=== PATIENT | female | born 1960 | race American Indian/Alaskan Native ===

== ENCOUNTER 2016-12-20 20:57 | Emergency (ER) | payer MEDICARE ==
[2016-12-20 21:37] LABS: Basophils % (Auto) 1.1 % (0.0-1.8); Eosinophils % (Auto) 4.1 % (0.0-4.3); Hematocrit 34.5 % (30.3-42.9); Hemoglobin 11.3 gm/dl (10.1-14.3); Mean Corpuscular HGB Conc 33 % (30-34); Mean Corpuscular Volume 79 fl (79-97); Platelet Count 166 K/mm3 (140-440); Red Blood Count 4.36 M/mm3 (3.65-5.03); Red Cell Distribution Width 15.4 % (13.2-15.2); White Blood Count 3.1 K/mm3 (4.5-11.0)
[2016-12-20 21:41] LABS: Mean Corpuscular Hemoglobin 26 pg (28-32)
[2016-12-20 21:54] LABS: Alanine Aminotransferase 16 units/L (7-56); Albumin 4.2 g/dL (3.9-5); Albumin/Globulin Ratio 1.4 %; Alkaline Phosphatase 110 units/L (35-129); Anion Gap 17 mmol/L; BUN/Creatinine Ratio 16.92; Bilirubin,Total < 0.20 mg/dL (0.1-1.2); Blood Urea Nitrogen 22 mg/dL (7-17); Calcium 9.2 mg/dL (8.4-10.2); Carbon Dioxide 30 mmol/L (22-30); Chloride 100.1 mmol/L (98-107); Glucose 89 mg/dL (65-100); Lipase 35 units/L (13-60); Potassium 3.5 mmol/L (3.6-5.0); Sodium 144 mmol/L (137-145); Total Protein 7.3 g/dL (6.3-8.2)
[2016-12-21] MEDS ORDERED: ZOFRAN IM ONE (03:50)
[2016-12-21] MEDS ORDERED: TORADOL IM ONE (03:51)
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
[2016-12-21 04:37] VITALS: BP 166/97
--- NOTE | 2016-12-21 04:56 | Cat Scan Report ---
FINAL REPORT PROCEDURE: CT ABDOMEN PELVIS WO CON TECHNIQUE: Computerized axial tomography of the abdomen and pelvis was performed without intravenous contrast. This study is performed without intravascular contrast material and its sensitivity for abdominal and pelvic pathology, including neoplasms, inflammation, abscess, free fluid, thrombosis, arterial dissection and infarction, is reduced compared with a contrast enhanced study. HISTORY: B/L FLANK PAIN COMPARISON: No prior studies are available for comparison. FINDINGS: Visualized lower thorax: No significant abnormality. Liver: Normal size and attenuation. Spleen: Normal size and attenuation. Gallbladder and biliary system: There has been a cholecystectomy.. Pancreas: Normal. Adrenals: Normal. Kidneys: There are no kidney stones or ureteral stones. There is no hydronephrosis.. GI tract: There is diverticulosis the of the sigmoid and left colon. There is no diverticulitis, colitis, obstruction or mass. The appendix is normal.. Lymph nodes and mesentery: Normal. Vasculature: Normal. Bladder: Normal. Reproductive organs: Uterus is enlarged containing fibroids. Ovaries are unremarkable.. Peritoneum: There is no ascites, free air, abscess or adenopathy.. Musculoskeletal structures: No significant abnormality. Other: None. IMPRESSION: There has been a cholecystectomy.. There are no kidney stones or ureteral stones. There is no hydronephrosis.. There is diverticulosis the of the sigmoid and left colon. There is no diverticulitis, colitis, obstruction or mass. The appendix is normal.. Uterus is enlarged containing fibroids. Ovaries are unremarkable.. There is no ascites, free air, abscess or adenopathy. .
[2016-12-21 05:26] LABS: Bacteria,Urine 1+ /HPF (Negative); Bilirubin,Urine NEG (Negative); Blood,Urine NEG (Negative); Ketones,Urine NEG (Negative); Leukocyte Esterase,Urine MOD (Negative); Mucus,Urine FEW /HPF; Nitrite,Urine NEG (Negative); Protein,Urine <15 mg/dL mg/dL (Negative); Urobilinogen,Urine < 2.0 mg/dL (<2.0)
== END 2016-12-21 07:00 | disposition home or self-care (01) ==
LOC: ED 20:57
DX: N39.0 Urinary tract infection, site not specified (principal); I10 Essential (primary) hypertension
CPT/HCPCS: 36415; 74176; 80053; 81001; 83690; 85025; 96372; 99284; J1885; J2405

== ENCOUNTER 2018-08-01 14:01 | Emergency (ER) | payer MEDICARE ==
--- NOTE | 2018-08-01 14:56 | Emergency Department Report ---
Blank Doc - Documentation Documentation: 58 y/o history of mental illness. Was committed to mental hospital and ran away from hospital. Now out of medications. Feels very depressed to the point she cannot function. Unable to eat or care forself. Wants assisted living. Wont answer question of suicidal question but reports auditory and visual hallucination.
[2018-08-01 15:32] LABS: Basophils # (Auto) 0.1 K/mm3 (0.0-0.1); Basophils % (Auto) 1.4 % (0.0-1.8); Eosinophils # (Auto) 0.2 K/mm3 (0.0-0.4); Eosinophils % (Auto) 3.8 % (0.0-4.3); Hematocrit 31.8 % (30.3-42.9); Hemoglobin 10.4 gm/dl (10.1-14.3); Lymphocytes # (Auto) 1.3 K/mm3 (1.2-5.4); Lymphocytes % (Auto) 32.6 % (13.4-35.0); Mean Corpuscular HGB Conc 33 % (30-34); Mean Corpuscular Volume 79 fl (79-97); Monocytes # (Auto) 0.3 K/mm3 (0.0-0.8); Monocytes % (Auto) 6.8 % (0.0-7.3); Platelet Count 182 K/mm3 (140-440); Red Blood Count 4.02 M/mm3 (3.65-5.03); Red Cell Distribution Width 15.6 % (13.2-15.2)
[2018-08-01 15:54] LABS: Albumin 4.1 g/dL (3.9-5)
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
[2018-08-01] MEDS ORDERED: K-DUR PO ONE (18:25)
[2018-08-01] MEDS ORDERED: BENADRYL PO ONE (21:05)
[2018-08-01] MEDS ORDERED: NORVASC ONE (21:05)
[2018-08-02] MEDS ORDERED: K-DUR PO ONE (03:07)
[2018-08-02] MEDS ORDERED: TYLENOL ONE (04:21)
[2018-08-02] MEDS ORDERED: NORVASC PO ONE ×3 (07:04→12:25)
[2018-08-02] MEDS ORDERED: TYLENOL PO ONE (07:04)
[2018-08-02] MEDS ORDERED: BENADRYL PO ONE (07:11)
[2018-08-02] MEDS ORDERED: NORVASC ONE (09:43)
[2018-08-02 11:38] LABS: Bacteria,Urine 1+ /HPF (Negative); Bilirubin,Urine NEG (Negative); Blood,Urine NEG (Negative); Color,Urine Straw (Yellow); Mucus,Urine FEW /HPF; Protein,Urine <15 mg/dL mg/dL (Negative); Urobilinogen,Urine < 2.0 mg/dL (<2.0)
[2018-08-02 11:50] LABS: Amphetamine Screen,Urine PRESUMPTIVE NEGATIVE; Benzodiazepines Screen,Urine PRESUMPTIVE NEGATIVE; Cannabinoid Screen,Urine PRESUMPTIVE NEGATIVE; Cocaine Screen,Urine PRESUMPTIVE NEGATIVE; Methadone Screen,Urine PRESUMPTIVE NEGATIVE; Opiate Screen,Urine PRESUMPTIVE NEGATIVE
[2018-08-02 12:36] VITALS: BP 188/94
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
[2018-08-02] MEDS ORDERED: ABILIFY PO SCH (14:00)
[2018-08-02] MEDS ORDERED: BENADRYL PO SCH (22:00)
== END 2018-08-02 17:38 ==
LOC: EEVIPCON 14:01 → ED 14:01
DX: F39 Unspecified mood [affective] disorder (principal); G47.00 Insomnia, unspecified; R45.851 Suicidal ideations; I10 Essential (primary) hypertension; F31.9 Bipolar disorder, unspecified; F20.9 Schizophrenia, unspecified; F32.9 Major depressive disorder, single episode, unspecified; F17.200 Nicotine dependence, unspecified, uncomplicated
CPT/HCPCS: 36415; 80053; 80307; 81001; 82962; 85025; 99284; G0480; 80320

== ENCOUNTER 2018-08-02 12:50 | Inpatient (IN) | payer MEDICARE ==
[2018-08-02] MEDS ORDERED: DESYREL PO PRN (14:42)
[2018-08-02] MEDS ORDERED: IBUPROFEN PO PRN (14:42)
[2018-08-02] MEDS ORDERED: ULTRAM PO PRN (14:42)
[2018-08-02] MEDS ORDERED: NON-FORMULARY (Ciprofloxacin Hcl [Ciprofloxacin Tab] 500 MG) PO SCH (14:45)
[2018-08-02] MEDS: REMERON SOLUTAB PO SCH (21:32)
[2018-08-02] MEDS ORDERED: NON-FORMULARY (Quetiapine Fumarate [Quetiapine Fumarate] 300 MG) PO SCH (22:00)
--- NOTE | 2018-08-03 08:44 | History and Physical Report ---
GP History & Physical - History of Present Illness Date of admission: 08/02/18 Date of Examination: 08/03/18 Reason for Admission: Danger to self, Impaired reality testing, Psychopathology interference Chief Complaint: I have not been able to sleep for more than 7 days History of Present Illness: The patient is a 58yo , disabled AAF with history of Bipolar disorder. She presents with c/o inability to sleep for 7 days, racing thoughts, auditory hallucinations and fleeting suicidal thoughts. Patient reports that she is on stable on her medications - Seroquel 200mg twice daily and monthly Abilify shot. Per patient, she missed her last injection because the Pharmacist who usually comes to her house to give her the injection did not come last month. She wants to resume the Abilify injection as she finds it beneficial. Legal Status: Voluntary Patient Problems: Current Active Problems Bipolar 1 disorder, mixed, severe (Acute) Reaction to Hospitalization: Accepting Substance History - Substance History Drug Use: none Tobacco Type: Cigarettes Alcohol Use: No Past psychiatric history - Past Medical History Past Medical History: hypertension - past Psychiatric treatment and history Psych: Bipolar psychiatric treatment history: She reports 5 previous inpatient admissions, one suicide attempt after her in 2006. She has established out-patient care. - Social History Social history: , other (She lives with a general machine operator, she has an CHAY but she is disabled. No legal history and no access to guns. ) Review of Systems All systems: negative Constitutional: fatigue Psychiatric: anxiety, insomnia, mood swings Results - Results Labs/Vitals: Last Vital Signs Temp 97.7 F 08/03/18 07:00 Pulse 96 H 08/03/18 07:00 Resp 18 08/03/18 07:00 BP 122/89 08/03/18 07:00 Pulse Ox 97 08/03/18 07:00 Physical Examination - Constitutional Vitals: Vital Signs Temp Pulse Resp BP Pulse Ox 97.7 F 96 H 18 122/89 97 08/03/18 07:00 08/03/18 07:00 08/03/18 07:00 08/03/18 07:00 08/03/18 07:00 Temperature -Last 24 Hours Temperature 97.7 F General appearance: Present: no acute distress, obese - EENT Eyes: Present: PERRL ENT: hearing intact - Neck Neck: Present: supple - Respiratory Respiratory effort: normal Mental Status Exam - Vital signs Last Vital Signs Temp 97.7 F 08/03/18 07:00 Pulse 96 H 08/03/18 07:00 Resp 18 08/03/18 07:00 BP 122/89 08/03/18 07:00 Pulse Ox 97 08/03/18 07:00 - Exam Orientation: time, person Affect: depressed, anxious Mood: congruent with affect Thought Process: Intact Perceptions: auditory, hallucinations Speech: normal rate and pattern Concentration: focused Motor activity: normal Level of consciousness: alert Memory: Intact Sleep Symptoms: Difficulty Falling Asleep Interaction: cooperative, pleasant Mini mental status exam(if necessary): 24-30 Assessment and Plan - Psychiatric problem (1) Bipolar 1 disorder, mixed, severe Current Visit: Yes Status: Acute plan to address problem: Patient will be admitted for inpatient psychiatric evaluation, medication adjustment and close monitoring The patient's behavior, mood, sleep and appetite will be closely monitored. Patient will be enrolled in individual and group therapeutic sessions and encouraged to attend. Patient will be provided with a safe and structured environment. Patient's physical health needs will be addressed by the Hospitalist. Social Assessment will be completed, and the Corporate Safety Coordinator will work with patient and family to ensure a suitable and safe disposition Medication adjustment will be made as clinically indicated. Will resume home meds, start Abilify 5mg qd and give her the Abilify shot when available. The patient agreed on the treatment plan, understood the risk, benefit, alternative treatment, potential consequence of no treatment, and gave informed consent. Physician Certification - Certification Statement Physician Certification Statement: This is an acknowledgement statement that GORGE HILARIO is a 58 year old F who requires inpatient psychiatric admission for treatment which could reasonably be expected to improve the patient's condition for Estimated period of time patient will need to remain in the hospital: [ ] Plan for post-hospital care: [ ]
[2018-08-03] MEDS: NORVASC PO SCH (09:05)
[2018-08-03] MEDS: ZESTRIL PO SCH (09:07)
--- NOTE | 2018-08-03 09:41 | History and Physical Report ---
<JESS RICHMOND - Last Filed: 08/03/18 11:07> History of Present Illness Date of examination: 08/03/18 Date of admission: 08/02/18 17:40 Chief complaint: Danger to self, impaired reality testing History of present illness: 58-year-old -[place] female with history of bipolar disorder and essential hypertension. Presented to the ED on 08/01 with complaints of insomnia for the past 7 days, recent suicidal thoughts, and auditory hallucinations. Patient states that she attempted to overdose pills approximately one week ago and is unsure of the medication she used. Patient states that she is usually stable on by mouth Seroquel and Abilify injection. However she was unable to receive most recent Abilify injection which cause her to experience episodes of on unstability. At the time of my examination she denies suicidal ideations, hallucinations, chest pain, shortness of breath, or cough. She admits to generalized chronic pain, which is relieved by tramadol. Past History Past Medical History: hypertension Social history: , other (She lives with a public health dentist, she has an CHAY but she is disabled. No legal history and no access to guns. ) Medications and Allergies Allergies Allergy/AdvReac Type Severity Reaction Status Date / Time chloroquine Allergy Rash Verified 01/10/14 05:09 Home Medications Medication Instructions Recorded Confirmed Last Taken Type Lisinopril [Zestril] 30 mg PO QDAY #30 tablet 10/26/13 08/05/18 Unknown Rx Quetiapine Fumarate [QUEtiapine 300 mg PO QDAY #30 tablet 10/26/13 08/05/18 Unknown Rx Fumarate] QUEtiapine [SEROquel] 200 mg PO BID #60 tablet 12/25/13 08/05/18 Unknown Rx amLODIPine [Norvasc] 5 mg PO DAILY #30 tab 12/25/13 08/05/18 Unknown Rx Ibuprofen [Motrin 800 MG tab] 800 mg PO Q8HR PRN #30 tablet 11/17/14 08/05/18 Unknown Rx Active Meds: Active Medications Amlodipine Besylate (Norvasc) 5 mg PO DAILY [facility] Last Admin: 08/03/18 09:05 Dose: 5 mg Documented by: Aripiprazole (Abilify) 5 mg PO QDAY [facility] Ibuprofen (Motrin) 800 mg PO Q8HR PRN PRN Reason: Pain Lisinopril (Zestril) 30 mg PO QDAY [facility] Last Admin: 08/03/18 09:07 Dose: 30 mg Documented by: Mirtazapine (Remeron Solutab) 15 mg PO QHS [facility] Last Admin: 08/02/18 21:32 Dose: 15 mg Documented by: Miscellaneous Medication (Ciprofloxacin Hcl [Ciprofloxacin Tab]) 500 mg PO Q12H [facility] Quetiapine Fumarate (Seroquel) 300 mg PO QHS [facility] Last Admin: 08/02/18 21:32 Dose: 300 mg Documented by: Quetiapine Fumarate (Seroquel) 200 mg PO BID@0800,1700 [facility] Last Admin: 08/03/18 09:05 Dose: 200 mg Documented by: Tramadol HCl (Ultram) 50 mg PO Q6HR PRN PRN Reason: Pain Last Admin: 08/02/18 21:33 Dose: 50 mg Documented by: Trazodone HCl (Desyrel) 50 mg PO QHS PRN PRN Reason: Insomnia Review of Systems Constitutional: chronic pain Cardiovascular: no chest pain, no rapid/irregular heart beat, no shortness of breath Respiratory: no cough, no cough with sputum Gastrointestinal: no nausea, no vomiting, no diarrhea Genitourinary Female: no dysuria Rectal: no incontinence Musculoskeletal: no muscle weakness Integumentary: no rash, no sores, no change in hair/nails Neurological: no weakness, no numbness, no tingling Psychiatric: change in sleep habits, sleep disturbances, insomnia, no suicidal ideation, no hallucinations Endocrine: no weight change Hematologic/Lymphatic: no easy bruising, no easy bleeding Allergic/Immunologic: no seasonal allergies Exam - Constitutional Vitals: Temp Pulse Resp BP Pulse Ox 97.7 F 66 18 114/68 97 08/03/18 07:00 08/03/18 09:07 08/03/18 07:00 08/03/18 09:07 08/03/18 07:00 General appearance: Present: no acute distress - EENT Eyes: Present: PERRL, EOM intact ENT: hearing intact - Neck Neck: Present: supple, normal ROM - Respiratory Respiratory effort: normal Respiratory: bilateral: diminished (bases) - Cardiovascular Rhythm: regular Heart Sounds: Present: S1 & S2 - Extremities Extremities: pulses intact, pulses symmetrical Peripheral Pulses: within normal limits - Abdominal General gastrointestinal: Present: soft, non-tender Female genitourinary: Present: deferred - Rectal Rectal Exam: deferred - Integumentary Integumentary: Present: clear, warm, dry - Musculoskeletal Musculoskeletal: strength equal bilaterally - Psychiatric Psychiatric: cooperative - Neurologic Neurologic: CNII-XII intact - Allied Health Allied health notes reviewed: nursing Assessment and Plan Assessment and plan: Assessment: 58-year-old female with history of bipolar disorder, and essential Hypertension. At the time of her examination patient is awake alert and oriented 3, sitting in dayroom NAD. Bipolar disorder Essential hypertension Hypokalemia Chronic pain Plan: Bipolar disorder being managed by primary team Continue lisinopril 30 mg daily, Norvasc 5 mg daily, and monitor blood pressure Check Potassium, magnesium, and phosphorus; replace orally prn Continue pain management Advance Directives: No Contraindication Mechanical VTE Prophylaxis: Treatment Not Indicated Plan of care discussed with patient/family: Yes <KOREY MEEKS - Last Filed: 08/06/18 16:53> History of Present Illness Date of admission: 08/02/18 17:40 Medications and Allergies Active Meds: Active Medications Amlodipine Besylate (Norvasc) 5 mg PO DAILY [facility] Last Admin: 08/06/18 09:15 Dose: 5 mg Documented by: Aripiprazole (Abilify) 5 mg PO QDAY [facility] Last Admin: 08/06/18 09:17 Dose: 5 mg Documented by: Ibuprofen (Motrin) 800 mg PO Q8HR PRN PRN Reason: Pain Last Admin: 08/05/18 16:21 Dose: 800 mg Documented by: Lisinopril (Zestril) 30 mg PO QDAY [facility] Last Admin: 08/06/18 09:16 Dose: 30 mg Documented by: Mirtazapine (Remeron Solutab) 15 mg PO QHS [facility] Last Admin: 08/05/18 21:48 Dose: 15 mg Documented by: Nicotine (Habitrol) 21 mg TD QDAY [facility] Last Admin: 08/06/18 09:21 Dose: 21 mg Documented by: Quetiapine Fumarate (Seroquel) 300 mg PO QHS [facility] Last Admin: 08/05/18 21:47 Dose: 300 mg Documented by: Quetiapine Fumarate (Seroquel) 200 mg PO BID@0800,1700 [facility] Last Admin: 08/06/18 09:15 Dose: 200 mg Documented by: Tramadol HCl (Ultram) 50 mg PO Q6HR PRN PRN Reason: Pain Last Admin: 08/02/18 21:33 Dose: 50 mg Documented by: Trazodone HCl (Desyrel) 50 mg PO QHS PRN PRN Reason: Insomnia Last Admin: 08/04/18 21:42 Dose: 50 mg Documented by: Exam - Constitutional Vitals: Temp Pulse Resp BP Pulse Ox 97.9 F 107 H 18 140/67 97 08/06/18 08:32 08/06/18 09:16 08/06/18 08:32 08/06/18 09:16 08/06/18 08:32 Results - Labs Labs: Laboratory Last Values POC Glucose 108 (70-105) H 08/06/18 07:54 Assessment and Plan Assessment and plan: I saw and evaluated the patient. I agree with the findings and the plan of care as documented in the Nurse Practitioner's~note, with the following corrections and additions. recheck labs, K was repleted in ER 2 days ago
[2018-08-03] MEDS ORDERED: LISINOPRIL 30 MG PO SCH (10:00)
[2018-08-03] MEDS: ABILIFY PO SCH (10:12)
[2018-08-03] MEDS: HABITROL TD SCH (17:42)
[2018-08-03] MEDS: REMERON SOLUTAB PO SCH (21:49)
--- NOTE | 2018-08-04 08:42 | Progress Note ---
Subjective Date of service: 08/04/18 Principal diagnosis: Bipolar 1 disorder, mixed, severe Subjective Comment: Patient reports some improvement in her mood. She slept better last night. She continues to have racing thoughts and auditory hallucinations. She was started on Abilify 5mg tablet yesterday as Abilify Maintena is not on Formulary here. Objective - Criteria for Continued Treatment Criteria for Continued Treatment: Improving Level of Functioning, Reducing Isolative Behaviors, Stablizing Level of Functioning, Improving Emotional/Socia - Mental Status Mental Status: Oriented x 3 - Objective Observation Participation Level: Full Assessment and Plan - Patient Problems (1) Bipolar 1 disorder, mixed, severe Current Visit: Yes Status: Acute Plan to address problem: Patient will be admitted for inpatient psychiatric evaluation, medication adjustment and close monitoring The patient's behavior, mood, sleep and appetite will be closely monitored. Patient will be enrolled in individual and group therapeutic sessions and encouraged to attend. Patient will be provided with a safe and structured environment. Patient's physical health needs will be addressed by the Hospitalist. Social Assessment will be completed, and the Global Mobility Specialist will work with patient and family to ensure a suitable and safe disposition Medication adjustment will be made as clinically indicated. Continue Abilify 5mg qd and give her the Abilify shot when available. The patient agreed on the treatment plan, understood the risk, benefit, alternative treatment, potential consequence of no treatment, and gave informed consent.
[2018-08-04] MEDS: ABILIFY PO SCH (09:00)
[2018-08-04] MEDS: ZESTRIL PO SCH (09:01)
[2018-08-04] MEDS: NORVASC PO SCH (09:04)
[2018-08-04] MEDS: HABITROL TD SCH (09:06)
[2018-08-04] MEDS: REMERON SOLUTAB PO SCH (21:42)
[2018-08-05] MEDS: ABILIFY PO SCH (09:41)
[2018-08-05] MEDS: ZESTRIL PO SCH (09:41)
[2018-08-05] MEDS: HABITROL TD SCH (09:42)
[2018-08-05] MEDS: NORVASC PO SCH (09:43)
--- NOTE | 2018-08-05 15:08 | Progress Note ---
Subjective Date of service: 08/05/18 Principal diagnosis: Bipolar 1 disorder, mixed, severe Subjective Comment: Patient reports that she is improving. The racing thoughts are not as bad. She slept better last night. She was started on Abilify 5mg tablet 2 days ago as Abilify Maintena is not on Formulary here. Objective - Criteria for Continued Treatment Criteria for Continued Treatment: Improving Level of Functioning, Reducing Isolative Behaviors, Stablizing Level of Functioning, Improving Emotional/Socia - Mental Status Mental Status: Oriented x 3 - Objective Observation Participation Level: Moderate Assessment and Plan - Patient Problems (1) Bipolar 1 disorder, mixed, severe Current Visit: Yes Status: Acute Plan to address problem: Patient will be admitted for inpatient psychiatric evaluation, medication adjustment and close monitoring The patient's behavior, mood, sleep and appetite will be closely monitored. Patient will be enrolled in individual and group therapeutic sessions and encouraged to attend. Patient will be provided with a safe and structured environment. Patient's physical health needs will be addressed by the Hospitalist. Social Assessment will be completed, and the Furniture Upholsterer will work with patient and family to ensure a suitable and safe disposition Medication adjustment will be made as clinically indicated. Continue Abilify 5mg qd and give her the Abilify shot when available. The patient agreed on the treatment plan, understood the risk, benefit, alternative treatment, potential consequence of no treatment, and gave informed consent.
[2018-08-05] MEDS: REMERON SOLUTAB PO SCH (21:48)
[2018-08-06] MEDS: NORVASC PO SCH (09:15)
[2018-08-06] MEDS: ZESTRIL PO SCH (09:16)
[2018-08-06] MEDS: ABILIFY PO SCH (09:17)
[2018-08-06] MEDS: HABITROL TD SCH (09:21)
--- NOTE | 2018-08-06 17:31 | Progress Note ---
Subjective Date of service: 08/06/18 Principal diagnosis: Bipolar 1 disorder, mixed, severe Subjective Comment: The patient is a 58-year-old female with bipolar disorder who was admitted for an acute mixed episode. She currently states that she is sleeping better and slept through the night last night she continues to feel sad but states that it is a chronic issue that's not getting better worse. She denies suicidal ideation today and also denies homicidal ideation. She denies auditory and visual hallucinations she denies side effects from her medication though does note that she has some kidney problems. 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 It is unclear if she has any delusional content. Last Vital Signs Temp 97.9 F 08/06/18 08:32 Pulse 107 H 08/06/18 09:16 Resp 18 08/06/18 08:32 BP 140/67 08/06/18 09:16 Pulse Ox 97 08/06/18 08:32 Objective - Criteria for Continued Treatment Criteria for Continued Treatment: Preventing Decomposition, Stablizing Level of Functioning - Mental Status Mental Status: Oriented x 3 - Objective Observation Participation Level: Full Assessment and Plan - Patient Problems (1) Bipolar 1 disorder, mixed, severe Current Visit: Yes Status: Acute Plan to address problem: The patient has shown significant improvement in symptoms since admission. She does not have any further authorize days by insurance and will be discharged to home with follow-up with her regular psychiatrist next week she will be di scharged on her current Abilify 5 mg by mouth daily and current doses of Seroquel and Remeron. Recommend follow up [facility] for missed dose of Abilify maintena.
[2018-08-06] MEDS: REMERON SOLUTAB PO SCH (21:02)
[2018-08-06] MEDS: COLACE PO SCH (21:03)
[2018-08-07] MEDS: COLACE PO SCH ×2 (10:40→22:40)
[2018-08-07] MEDS: ZESTRIL PO SCH (10:40)
[2018-08-07] MEDS: ABILIFY PO SCH (10:45)
[2018-08-07] MEDS: NORVASC PO SCH (10:46)
[2018-08-07] MEDS: HABITROL TD SCH (10:50)
--- NOTE | 2018-08-07 16:43 | Progress Note ---
Subjective Date of service: 08/07/18 Principal diagnosis: Bipolar 1 disorder, mixed, severe Subjective Comment: The patient is a 58-year-old female with bipolar disorder who was admitted for an acute mixed episode. She currently states that she slept "ok." She endorses depressed mood today and does not know why. She denies suicidal and homicidal ideation. She denies auditory and visual hallucinations. She denies side effects from her medication. She reports headaches, but states they are better since coming to the hospital and sleeping more. Last Vital Signs Temp 97.9 F 08/06/18 08:32 Pulse 107 H 08/06/18 09:16 Resp 18 08/06/18 08:32 BP 140/67 08/06/18 09:16 Pulse Ox 97 Last Vital Signs Temp 98.4 F 08/07/18 09:00 Pulse 107 H 08/07/18 10:46 Resp 18 08/07/18 09:00 BP 140/67 08/07/18 10:46 Pulse Ox 97 08/06/18 08:32 Objective - Criteria for Continued Treatment Criteria for Continued Treatment: Reducing Isolative Behaviors, Improving Treatment / Medication Compliance, Stablizing Level of Functioning - Mental Status Mental Status: Oriented x 3 - Objective Observation Participation Level: Moderate (Did not participate in a group today due to depressed mood.) Assessment and Plan - Patient Problems (1) Bipolar 1 disorder, mixed, severe Current Visit: Yes Status: Acute Plan to address problem: Continue Abilify 5mg po Qam. Change AM Seroquel to evening, as the patient is too sedated during the daytime. Continue hospitalization for continued side effect management. The patient will not be discharged today and will await assistance from home health care social worker with housing and scheduling psychiatric outpatient follow-up.
[2018-08-07] MEDS: REMERON SOLUTAB PO SCH (22:36)
[2018-08-08] MEDS: ABILIFY PO SCH (10:19)
[2018-08-08] MEDS: ZESTRIL PO SCH (10:19)
[2018-08-08] MEDS: COLACE PO SCH ×2 (10:19→22:22)
[2018-08-08] MEDS: HABITROL TD SCH (10:21)
[2018-08-08] MEDS: NORVASC PO SCH (10:21)
--- NOTE | 2018-08-08 13:28 | Progress Note ---
Subjective Date of service: 08/08/18 Principal diagnosis: Bipolar 1 disorder, mixed, severe Subjective Comment: Patient continues to have severe daytime sedation, despite d/c'ing AM dose of Seroquel. She states she feels tired and weak. She also endorses a headache and would like medication for pain. She has a depressed mood, but no SI/HI. She denies AVH. Objective - Criteria for Continued Treatment Criteria for Continued Treatment: Improving Level of Functioning, Reducing Isolative Behaviors, Stablizing Level of Functioning, Improving Emotional/Socia - Symptoms/Impairments Symptoms/Impairments: Grooming: fair. Behavior: cooperative. Motor: psychomotor retardation. Speech: normal. Mood: depressed. Affect: depressed. Thought content: no AVH, no SI/HI. Thought process: goal-directed. Reasoning: fair. Impulse control: good. Insight: good. Judgment: good - Mental Status Mental Status: Oriented x 3 - Objective Observation Participation Level: Moderate Reason(s) For Not Participating: Sleeping Assessment and Plan - Patient Problems (1) Bipolar 1 disorder, mixed, severe Current Visit: Yes Status: Acute Plan to address problem: Continue Abilify 5mg po Qam. Will change Seroquel to 500mg po Qhs only. Continue hospitalization for continued side effect management. The patient will not be discharged today and will await assistance from social welfare administrator with housing and scheduling psychiatric outpatient follow-up prior to discharge.
[2018-08-08] MEDS ORDERED: TYLENOL PO PRN (13:30)
[2018-08-08] MEDS: REMERON SOLUTAB PO SCH (22:23)
[2018-08-09] MEDS ORDERED: ZESTRIL ONE (10:17)
[2018-08-09] MEDS: ABILIFY PO SCH (11:24)
[2018-08-09] MEDS: COLACE PO SCH (11:28)
[2018-08-09] MEDS: NORVASC PO SCH (11:31)
[2018-08-09] MEDS: ZESTRIL PO SCH (11:33)
--- NOTE | 2018-08-09 12:06 | Discharge Summary ---
Providers - Providers Date of Admission: 08/02/18 17:40 Date of discharge: 08/09/18 Attending physician: AMRTI ALAN MD Seen by hospitalist upon admission for HTN and chronic pain. Patient was continued on home meds. Patient also noted kidney problems and had serum cre atinine of 1.7 upon admission. NSAIDS were removed from PRN meds. [facility] Reason for admission: manic episode, severe with psychotic features and suicidal ideation Admitting Diagnosis: F31.64 - BIPOLAR DISORD, CRNT EPISODE MIXED, SEVERE, W PSYCH FEATURES Condition: Good Pertinent studies: Laboratory Tests 08/04/18 08/05/18 08/06/18 08:01 07:44 07:54 POC Glucose 93 119 H 108 H 08/07/18 08/08/18 09:08 09:57 POC Glucose 98 107 H Height Height 5 ft 8 in Weight Weight 117.93 kg Weight 117.934 kg Procedures: None Hospital course: Ms. Villegas is a 58 year-old female with Bipolar disorder admitted for an acute mixed episode with psychotic features, delusions, and suicidal ideation. Upon admission the patient was started on Abilify 5 mg by mouth daily and Seroquel 200 mg in the morning 200 mg in the afternoon and 300 mg at be dtime. She was also continued on Remeron 15 mg by mouth daily at bedtime. By day 2 of hospitalization, the patient was having some improvement in sleep and decreased racing thoughts. On day 4 of hospitalization, the patient was experiencing daytime sedation from AM dose of Seroquel and all dosing was changed to afternoon/evening. On day 5 of hospitalization, the patient continued to have hypersedation during the daytime and Seroquel was lowered to 600mg QHS. On day 5 of hospitalization, the patient no longer had evidence of dia, but expressed mild depression. She also denied SI/HI and AVH for the last 3 days of hospitalization. On the day of discharge, the patient expressed concern about leaving the hospital because she feels that she does not have "good coping skills." She was evasive in answering questions - she expressed that her immigration status is of concern, but would not elaborate. However, given that she no longer has SI/HI, AVH, delusions, or evidence of dia, criteria for hospitalization is no longer met. emphasized the importance of taking medications daily, following up with psychiatry to restart Stacie Overton, and attending groups/therapy to improve coping skills. Disposition: DC-01 TO HOME OR SELFCARE Allergies/Adverse Reactions: Allergies chloroquine Allergy (Verified 01/10/14 05:09) Rash Vital Signs: Last Vital Signs Temp 98.4 F 08/09/18 06:26 Pulse 109 H 08/09/18 06:26 Resp 18 08/09/18 06:26 BP 128/71 08/09/18 06:26 Pulse Ox 93 08/09/18 06:26 Last Lab: Laboratory Last Values POC Glucose 107 (70-105) H 08/08/18 09:57 - Discharge Diagnoses (1) Bipolar 1 disorder, mixed, severe Status: Resolved (2) Suicidal ideation Status: Resolved Core Measure Documentation - Palliative Care Palliative Care/ Comfort Measures: Not Applicable - Core Measures Any of the following diagnoses?: none Exam - Physical Exam Narrative exam: Mental Status Exam completed 08/09/18: Grooming: fair Behavior: Cooperative Speech: Normal Motor: mild psychomotor retardation Mood: "Ok, a little down" Affect: blunted Thought content: denies SI/HI, AVH Thought process: goal-directed Reasoning: good Impulse control: good Insight: fair Judgment: good - Constitutional Vitals: Temp Pulse Resp BP Pulse Ox 98.4 F 109 H 18 128/71 93 08/09/18 06:26 08/09/18 06:26 08/09/18 06:26 08/09/18 06:26 08/09/18 06:26 General appearance: Present: no acute distress - EENT Eyes: Present: EOM intact ENT: hearing intact - Respiratory Respiratory effort: normal - Psychiatric Psychiatric: appropriate mood/affect, intact judgment & insight, cooperative, other - Neurologic Neurologic: gait normal - Allied Health Allied health notes reviewed: nursing, social work Plan Activity: no restrictions Weight Bearing Status: Full Weight Bearing Diet: low fat, low cholesterol, renal Follow up with: SANDHYA HILL MD [Primary Care Provider] - 7 Days [facility] [Outside] - 7 Days Prescriptions: Mirtazapine Solutab [Remeron Solutab] 15 mg PO QHS #30 tab.rapdis QUEtiapine [SEROquel] 300 mg PO QHS 30 Days tablet ARIPiprazole [Abilify TAB] 5 mg PO QDAY #30 tablet Docusate Sodium [Colace CAP] 100 mg PO BID #60 capsule QUEtiapine [SEROquel] 200 mg PO BID@0800,1700 #30 tablet
[2018-08-09] MEDS: HABITROL TD SCH (12:46)
[2018-08-10 17:51] VITALS: BP 128/71
== END 2018-08-09 16:44 | disposition home or self-care (01) | DRG 885 ==
LOC: 3A 12:50 → UNDOADMIN 12:50 → 5A 15:10 → UNDOADMIN 15:10 → 5A 17:40
PROVIDERS: ADMIT Psychiatry & Neurology Psychiatry; ATTEND Psychiatry & Neurology Psychiatry
DX: F31.64 Bipolar disorder, current episode mixed, severe, with psychotic features (principal); R45.851 Suicidal ideations; I10 Essential (primary) hypertension; G89.29 Other chronic pain; E87.6 Hypokalemia; F17.210 Nicotine dependence, cigarettes, uncomplicated; F41.9 Anxiety disorder, unspecified; Z79.899 Other long term (current) drug therapy
CPT/HCPCS: 36415; 80053; 80307; 80320; 81001; 82962; 85025; G0378; G0480

== ENCOUNTER 2021-04-15 14:39 | Observation (INO) | payer MEDICARE, OTHER ==
[2021-04-15] MEDS ORDERED: cloNIDine 0.2 MG TAB PO ONE ×2 (17:51→20:00)
--- NOTE | 2021-04-15 17:51 | Event Note ---
ED Screening Note ED Screening Note: Patient has a past medical history of uncontrolled hypertension and CKD not on dialysis She presents for uncontrolled blood pressures She states that she is also been having some shortness of breath with exertion and leg swelling She reports that she sees a jewel hole gauger in [facility] She denies any chest pain This initial assessment/diagnostic orders/clinical plan/treatment(s) is/are subject to change based on patients health status, clinical progression and re- assessment by fellow clinical providers in the ED. Further treatment and workup at subsequent clinical providers discretion. Patient/guardian urged not to elope from the ED as their condition may be serious if not clinically assessed and managed. Initial orders include: Labs, urine, EKG, x-ray, clonidine
--- NOTE | 2021-04-15 18:20 | XRay Report ---
XR chest routine 2V INDICATION / CLINICAL INFORMATION: SOB COMPARISON: None available. FINDINGS: SUPPORT DEVICES: None. HEART / MEDIASTINUM: No significant abnormality. LUNGS / PLEURA: Lungs are clear. Costophrenic sulci are sharp. No pneumothorax. ADDITIONAL FINDINGS: No significant additional findings. IMPRESSION: 1. No acute findings. Signer Name: Lake Greco MD Signed: 04/15/2021 6:16 PM Workstation Name: [id number]
[2021-04-15] MEDS ORDERED: METOPROLOL TARTRATE 50 MG TAB PO ONE (18:28)
[2021-04-15] MEDS ORDERED: hydrALAZINE 25 MG TAB PO ONE (18:28)
[2021-04-15] MEDS ORDERED: ACETAMINOPHEN 500 MG TAB PO ONE (18:29)
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
[2021-04-15 20:03] LABS: Basophils % (Auto) 0.5 % (0.0-1.8); Eosinophils # (Auto) 0.3 K/mm3 (0.0-0.4); Eosinophils % (Auto) 7.5 % (0.0-4.3); Hematocrit 23.8 % (30.3-42.9); Hemoglobin 7.4 gm/dl (10.1-14.3); Lymphocytes # (Auto) 0.9 K/mm3 (1.2-5.4); Lymphocytes % (Auto) 25.2 % (13.4-35.0); Mean Corpuscular HGB Conc 31 % (30-34); Mean Corpuscular Volume 81 fl (79-97); Monocytes # (Auto) 0.4 K/mm3 (0.0-0.8); Monocytes % (Auto) 9.5 % (0.0-7.3); Platelet Count 196 K/mm3 (140-440); Red Blood Count 2.93 M/mm3 (3.65-5.03); Red Cell Distribution Width 16.2 % (13.2-15.2)
[2021-04-15 20:24] LABS: Alanine Aminotransferase 12 units/L (7-56); Albumin 3.8 g/dL (3.9-5); BUN/Creatinine Ratio 12; Blood Urea Nitrogen 32 mg/dL (7-17); Calcium 9.1 mg/dL (8.4-10.2); Hemolysis Index 3
[2021-04-15] MEDS ORDERED: ASPIRIN 81 MG TAB CHEW PO ONE (20:30)
[2021-04-15 20:51] LABS: Chol/HDL Ratio 3.69 %; HDL Cholesterol 63 mg/dL (40-59); LDL Cholesterol,Direct 150 mg/dL (50-130)
[2021-04-16] MEDS ORDERED: ACETAMINOPHEN 325 MG TAB PO PRN ×2 (00:44)
[2021-04-16] MEDS ORDERED: MORPHINE 2 MG/1 ML INJ IV PRN (00:44)
[2021-04-16] MEDS ORDERED: NITROGLYCERIN 0.4 MG TAB SUBL SL PRN (00:44)
[2021-04-16] MEDS ORDERED: MORPHINE 4 MG/1 ML INJ IV PRN ×2 (00:44)
[2021-04-16] MEDS ORDERED: ONDANSETRON 4 MG/2 ML INJ IV PRN (00:44)
[2021-04-16] MEDS ORDERED: traMADol 50 MG TAB PO PRN (00:44)
[2021-04-16] MEDS ORDERED: MAGNESIUM HYDROXIDE (MOM) ORAL LIQD UDC PO PRN (00:44)
[2021-04-16] MEDS ORDERED: hydrALAZINE 20 MG/1 ML INJ IV PRN (00:57)
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
[2021-04-16] MEDS ORDERED: HEPARIN 5,000 UNIT/1 ML VIAL SUB-Q SCH (06:00)
[2021-04-16 10:25] LABS: Bilirubin,Urine NEG (Negative); Blood,Urine NEG (Negative); Color,Urine Straw (Yellow); Urobilinogen,Urine < 2.0 mg/dL (<2.0)
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
[2021-04-16] MEDS ORDERED: NON-FORMULARY EACH (Gabapentin [Neurontin] 600 MG Tablet) PO SCH (13:15)
--- NOTE | 2021-04-16 13:40 | Event Note ---
Date: 04/16/21 61-year-old -Martiniquais female with known history of hypertension and bipolar disorder presented in the emergency room with complaining of shortness of breath and progressive swelling of her lower extremities. Upon arrival in the emergency room her blood pressure was initially elevated with systolic in the 200s and diastolic in the low 100s. Subsequent blood pressure recheck was within normal limits. Work-up in the emergency room today however, chest x-ray reveals no acute findings. Labs were significant for hemoglobin of 7.4, BUN of 32 and creatinine of 2.6. Troponin was elevated at 0.132. Lipid profile is also abnormally elevated. Patient was admitted to telemetry with elevated troponin, acute on chronic renal failure and anemia. Nephrology consulted, continue to monitor renal function Cardiology recommended stress test which will be scheduled for tomorrow will also check cardiac echocardiogram cont to follow clinically
[2021-04-16 13:54] LABS: Calcium 8.8 mg/dL (8.4-10.2)
[2021-04-16 14:06] LABS: Basophils % (Auto) 0.8 % (0.0-1.8); Eosinophils # (Auto) 0.3 K/mm3 (0.0-0.4); Eosinophils % (Auto) 7.9 % (0.0-4.3); Hematocrit 23.4 % (30.3-42.9); Hemoglobin 7.2 gm/dl (10.1-14.3); Lymphocytes # (Auto) 0.9 K/mm3 (1.2-5.4); Lymphocytes % (Auto) 26.9 % (13.4-35.0); Mean Corpuscular HGB Conc 31 % (30-34); Mean Corpuscular Volume 80 fl (79-97); Monocytes # (Auto) 0.3 K/mm3 (0.0-0.8); Monocytes % (Auto) 8.4 % (0.0-7.3); Platelet Count 195 K/mm3 (140-440); Red Blood Count 2.92 M/mm3 (3.65-5.03); Red Cell Distribution Width 16.2 % (13.2-15.2)
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
[2021-04-16] MEDS: GABAPENTIN 300 MG CAP PO SCH ×2 (15:47→22:57)
[2021-04-16] MEDS: hydrALAZINE 25 MG TAB PO SCH ×2 (15:47→22:59)
[2021-04-16] MEDS: QUEtiapine 200 MG TAB PO SCH ×2 (15:51→20:09)
--- NOTE | 2021-04-16 17:38 | Electrocardiograph Report ---
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
--- NOTE | 2021-04-16 17:47 | Electrocardiograph Report ---
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
[2021-04-16] MEDS ORDERED: MELATONIN 5 MG TAB PO SCH (22:00)
[2021-04-16] MEDS ORDERED: MIRTAZAPINE 15 MG TAB PO SCH (22:00)
[2021-04-16] MEDS ORDERED: NON-FORMULARY EACH (Melatonin [Melatonin 5mg Cap] 5 MG Capsule) PO SCH (22:00)
[2021-04-16] MEDS: METOPROLOL TARTRATE 25 MG TAB PO SCH (22:57)
[2021-04-16] MEDS: DOCUSATE SODIUM 100 MG CAP PO SCH (22:59)
[2021-04-17] MEDS: GABAPENTIN 300 MG CAP PO SCH ×2 (06:00→14:17)
[2021-04-17] MEDS: hydrALAZINE 25 MG TAB PO SCH ×2 (06:00→14:17)
[2021-04-17] MEDS ORDERED: REGADENOSON 0.4 MG/5 ML INJ IV ONE (07:57)
[2021-04-17] MEDS: QUEtiapine 200 MG TAB PO SCH ×2 (07:59→14:18)
[2021-04-17] MEDS ORDERED: FLUoxetine 20 MG CAP PO SCH (10:00)
[2021-04-17] MEDS ORDERED: FERROUS SULFATE 325 MG TAB PO SCH (10:00)
[2021-04-17] MEDS ORDERED: amLODIPine 10 MG TAB PO SCH (10:00)
[2021-04-17] MEDS ORDERED: ASPIRIN EC 325 MG TAB PO SCH (10:00)
[2021-04-17] MEDS ORDERED: amLODIPine 5 MG TAB PO SCH (10:00)
[2021-04-17] MEDS: METOPROLOL TARTRATE 25 MG TAB PO SCH (10:28)
[2021-04-17] MEDS: DOCUSATE SODIUM 100 MG CAP PO SCH (10:29)
--- NOTE | 2021-04-17 10:47 | Nuclear Medicine Report ---
APPROVED REPORT Exam: Nuclear Stress Test Indication: Chest pain [facility] Ht: 5 ft 8 in Wt: 274 lbs BSA: 2.34 m2 HR: 88 bpmBP: 171/93 mmHgBMI: 41.65 Rhythm: NSR Stress Test Details Stress Test: Pharmacologic stress testing performed using 0.4 mg of regadenoson per 5 mL given IV over 10 seconds. Reason for pharmacologic stress test: physical limitation. HR Resting HR: 88 bpm Max HR Achieved: 111 bpm Max Heart Rate (APMHR): 158 bpm Target HR (85% APMHR): 134 bpm % of APMHR: 70 Recovery HR: 98 bpm BP Resting BP: 171/93 mmHg Max BP: 195/89 mmHg Recovery BP: 152/80 mmHg ECG Resting ECG: Sinus Rhythm Stress ECG: Sinus Tachycardia ST Change: Non specific minor ST and T wave changes noted. Arrhythmia: None Recovery ECG: Sinus Rhythm Recovery ST Change: Non specific minor ST changes noted. Recovery Arrhythmia: None Clinical Reason for Termination: Completed protocol Stress Symptoms: None NM EXAM: Myocardial Perfusion REST/STRESS Imaging Protocol: Rest Tc-99m/Stress Tc-99m 1 day Resting Data Rest SPECT myocardial perfusion imaging was performed in supine position 45 minutes following the intravenous injection of 10 mCi of Tc-99m Myoview. Time of rest injection: 0700 Date: 04/17/2021 Pharmacologic Stress Pharmacologic stress test was performed by injecting Regadenoson 0.4 mg IV push followed by the intravenous injection of 28 mCi of Tc-99m Myoview. Time of stress injection: 912 Date: 04/17/2021 Gated Stress SPECT was performed 30 minutes after stress injection. Study Quality Study: excellent Lung Uptake: Normal Study Data TID = 0.98. Perfusion Wall Motion The rest and stress images show normal left ventricular wall motion.LVEF 50% post stress. Nuclear Conclusion ECG Findings: negative for ischemia Clinical Findings: negative for ischemia Nuclear Findings: equivocal Exercise Capacity: not assessed Left Ventricular Function: normal Risk Study: low Small area of mild ischemia noted in apical anteroseptal area. Clinical correlation would be warranted.
[2021-04-17] MEDS ORDERED: METOPROLOL TARTRATE 25 MG TAB PO SCH (13:00)
--- NOTE | 2021-04-17 13:40 | Discharge Summary ---
Providers - Providers Date of Admission: 04/16/21 00:44 Date of discharge: 04/17/21 Attending physician: MADIHA FELTON 04/16/21 Consult to Cardiac Rehabilitation [CONS] Routine Reason For Exam: Phase I 04/16/21 00:44 Consult to Cardiology [CONS] Routine Consulting Provider: ANTONIO SANTANA Reason For Exam: Elevated troponin Consult to Physician [CONS] Routine Comment: Consulting Provider: GRICEL WILDE Physician Instructions: Reason For Exam: Acute on chronic kidney failure Primary care physician: WAFER POLISHER Hospitalization Condition: Stable Pertinent studies: CXR MPI stress test Renal US Hospital course: 61-year-old -[place] female with known history of hypertension and bipolar disorder presented in the emergency room with complaining of shortness of breath and progressive swelling of her lower extremities. Upon arrival in the emergency room her blood pressure was initially elevated with systolic in the 200s and diastolic in the low 100s. Subsequent blood pressure recheck was within normal limits. In the emergency room chest x-ray reveals no acute findings. Labs were significant for hemoglobin of 7.4, BUN of 32 and creatinine of 2.6. Troponin was elevated at 0.132. Patient was admitted to telemetry with elevated troponin, acute on chronic renal failure and anemia. Nephrology consulted, monitored renal function Cardiology recommended stress test which showed no reversible ischemia 2d ehco showed preserved EF. Renal function was stable, BP meds were adjusted Patient was then discharged home with outpt f/u Disposition: 01 HOME / SELF CARE / HOMELESS Final Discharge Diagnosis (Prints w/discharge instructions): --NSTEMI type 2. --MALIK on CKD stage 3,. --HTN, uncontrolled. --Morbid obesity Time spent for discharge: 34 minutes Core Measure Documentation - Palliative Care Palliative Care/ Comfort Measures: Not Applicable - Core Measures Any of the following diagnoses?: none Exam - Physical Exam Narrative exam: GENERAL: well-developed morbidly obese -Burkin[place] female lying on bed appeared to be in no discomfort. HEENT: Normocephalic. Atraumatic. No conjunctival congestion or icterus. Patient has moist mucous membranes. NECK: Supple. Trachea midline. CHEST/LUNGS: Clear to auscultated bilaterally, breathing nonlabored. No wheezes crackles or rhonchi. HEART/CARDIOVASCULAR: Regular in rate and rhythm. S1 and S2 positive. ABDOMEN: Abdomen is soft, nontender. Patient has normal bowel sounds. SKIN: There is no rash. Warm and dry. NEURO: No focal motor deficit. Follows command. MUSCULOSKELETAL: No joint effusion or tenderness. EXTRIMITY: No edema, no cyanosis or clubbing. PSYCH: Cooperative. - Constitutional Vitals: Temp Pulse Resp BP Pulse Ox 98.2 F 94 H 19 163/84 97 04/17/21 03:50 04/17/21 10:00 04/17/21 03:50 04/17/21 09:17 04/17/21 10:00 Plan Activity: advance as tolerated Weight Bearing Status: Weight Bear as Tolerated Diet: low fat, low salt Additional Instructions: Please chesk your BP daily. f/u with intelligence chief in one week Follow up with: PRIMARY CARE, [Primary Care Provider] - 3-5 Days SILVESTRE OLIVO DO [Staff Physician] - 7 Days Forms: Discharge Signature Page Prescriptions: Metoprolol [Lopressor TAB] 50 mg PO BID #60 tablet Pantoprazole [Protonix] 40 mg PO QDAY #30 tablet
--- NOTE | 2021-04-17 15:23 | Progress Note ---
Assessment and Plan Patient is a 61-year-old female with a past medical history of hypertension, CKD stage III, bipolar disorder, and anemia who reports to the ED with a complaint of shortness of breath and high blood pressure x1 day NSTEMI suspect type 2 HTN MALIK on CKD-nephrology following Anemia Bipolar disorder Echocardiogram 04/16/2021-EF 55 to 60%, borderline LVH and right atrium are normal in size. Ventricular systolic function is normal. Echo 07/10/2020-LVEF 60 - 65%. LV systolic function is normal, mild concentric LV hypertrophy,Unable to assess LV diastolic function due to tachycardia. RV systolic function is normal. Aortic valve not well visualized. Turbulent flow across the LVOT noted without any increase in gradient. No significant change when compared to prior echo. PET Stress 04/2019- Normal PET myocardial perfusion images. There is no evidence of significant infarction or ischemia. There is normal LV function. The left ventricular ejection fraction is normal at rest 56 % which augments to 66% with stress. RegadenosonStress/ECG changes are nondiagnostic. HR response to regadenosan suggests good vasodilatory response This study suggests a low risk for cardiovascular event and is associated with a cardiac mortality of less than 1% per year. No coronary atherosclerosis Lexiscan stress test 04/17/2021-small area of mild ischemia noted in apical anterior septal area recommend medical management. Plan: EKG shows sinus rhythm 71 with no acute ischemic changes. Troponins noted to be elevated but downtrending 0.13->0.09. Patient currently chest pain-free Suspect NSTEMI type II in setting of accelerated hypertension with initial systolic blood pressure greater than 200 and MALIK on CKD Agree with hydralazine, amlodipine, metoprolol for blood pressure control Initiate atorvastatin 40 mg p.o. nightly We will hold his TRAVIS or ARB due to elevated creatinine Cardiac status stable Patient has a follow-up appointment with Dr. Gallardo, [facility] evaluation specialist, on 05/03/2021 at 2:30 PM in our [place] location. Phone #[phone] Patient seen in conjunction with Dr. Gallardo who agrees with this plan of care - Patient Problems (1) Acute kidney injury superimposed on CKD Current Visit: Yes Status: Acute (2) Anemia Current Visit: Yes Status: Acute (3) Elevated troponin Current Visit: Yes Status: Acute (4) Hypertension Current Visit: Yes Status: Acute (5) Hypertensive emergency Current Visit: No Status: Acute (6) Bipolar 1 disorder, mixed, severe Current Visit: No Status: Resolved Subjective Date of service: 04/17/21 Principal diagnosis: Hypertension Interval history: Patient for stress test this a.m. Patient sinus 97 on monitor Objective Vital Signs Temp Pulse Resp BP BP Pulse Ox 04/17/21 10:00 94 H 97 04/17/21 09:17 163/84 04/17/21 09:16 151/83 04/17/21 09:15 167/83 04/17/21 09:14 152/80 04/17/21 09:13 195/87 04/17/21 08:06 171/93 04/17/21 06:00 132/71 04/17/21 03:50 98.2 F 94 H 19 132/71 90 04/17/21 01:00 97 04/16/21 23:25 97.9 F 90 18 109/71 92 04/16/21 22:59 114/56 04/16/21 22:57 89 04/16/21 19:32 99.3 F 91 H 18 150/87 97 04/16/21 17:35 92 H 04/16/21 16:47 16 04/16/21 15:47 17 04/16/21 15:43 97.8 F 90 17 152/73 97 - Physical Examination HEENT: Positive: PERRL Neck: Positive: trachea midline Cardiac: Positive: Reg Rate and Rhythm Lungs: Positive: Normal Breath Sounds Neuro: Positive: Grossly Intact Abdomen: Positive: Soft Skin: Negative: Rash, Suspicious Lesions, Ulceration Extremities: Present: upper extr. pulses - Imaging and Cardiology Echo: report reviewed - EKG Sinus rhythms and dysrhythmias: sinus rhythm
--- NOTE | 2021-04-17 16:10 | Ultrasound Report ---
ULTRASOUND RENAL INDICATION / CLINICAL INFORMATION: ckd. COMPARISON: CT abdomen/pelvis 12/21/2016. FINDINGS: RIGHT KIDNEY: Length = 10.5 cm. - Echogenicity: Normal. - Cortical Thickness: Normal. - Hydronephrosis: None. - Cyst / Mass: None. - Stones: None seen. LEFT KIDNEY: Length = 11.0 cm. - Echogenicity: Normal. - Cortical Thickness: Normal. - Hydronephrosis: None. - Cyst / Mass: None. - Stones: None seen. URINARY BLADDER: No significant abnormality. FREE FLUID: None. ADDITIONAL FINDINGS: None. IMPRESSION: 1. No significant sonographic abnormality. Scribed by: Essence Wilson RDMS, RVT Scribed: 04/17/2021 3:01 PM I have reviewed the images, agree with this report, and edited this report as needed. Signer Name: Kushal Villatoro MD Signed: 04/17/2021 4:06 PM Workstation Name: [id number]
--- NOTE | 2021-04-17 17:36 | Electrocardiograph Report ---
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
[2021-04-17 20:27] VITALS: BP 142/72
== END 2021-04-17 20:50 | disposition home or self-care (01) ==
LOC: ED 14:39 → 4A 04-16 00:44
PROVIDERS: ADMIT Internal Medicine Geriatric Medicine; ATTEND Internal Medicine
DX: I21.4 Non-ST elevation (NSTEMI) myocardial infarction (principal); N17.9 Acute kidney failure, unspecified; I16.9 Hypertensive crisis, unspecified; I12.9 Hypertensive chronic kidney disease with stage 1 through stage 4 chronic kidney disease, or unspecified chronic kidney disease; N18.9 Chronic kidney disease, unspecified; D63.1 Anemia in chronic kidney disease; F31.9 Bipolar disorder, unspecified; E66.01 Morbid (severe) obesity due to excess calories; F20.9 Schizophrenia, unspecified; R77.8 Other specified abnormalities of plasma proteins; F17.210 Nicotine dependence, cigarettes, uncomplicated; R06.02 Shortness of breath; Z79.899 Other long term (current) drug therapy; Z98.890 Other specified postprocedural states; Z79.82 Long term (current) use of aspirin; Z68.41 Body mass index [BMI] 40.0-44.9, adult
CPT/HCPCS: 36415; 71046; 76770; 78452; 80048; 80053; 80061; 81001; 83880; 84484; 85025; 93005; 93017; 93306; 96372; 99285; 99406; A9502; G0378; J1644; J2785; 87116; 87641